=== PATIENT | male | born 1985 | race Caucasian/White ===

== ENCOUNTER 2017-05-24 12:12 | Day surgery (SDC) | payer OTHER ==
[2017-05-24] MEDS ORDERED: Ondansetron HCl/PF 4 MG/2 ML Vial ONE (13:39)
[2017-05-24] MEDS ORDERED: PROPOFOL 200 MG/20 ML VIAL ONE (13:39)
[2017-05-24] MEDS ORDERED: Lidocaine 1% PF 5 ML VIAL ONE (13:39)
[2017-05-24] MEDS ORDERED: Succinylcholine Chloride 20 MG/ML 10 ml SYRINGE FS ONE (13:39)
[2017-05-24] MEDS ORDERED: Fentanyl 250 MCG/5 ML VIAL ONE (14:31)
--- NOTE | 2017-05-24 16:45 | OP ---
DATE OF PROCEDURE: 05/24/2017 GI ENDOSCOPY NOTE SURGEON: Corey Esparza M.D. MANAGER PRESENTATION SURGEON: None. PROCEDURE: Esophagogastroduodenoscopy with removal of esophageal foreign body. INDICATIONS: 1. Esophageal food bolus impaction. 2. Dysphagia. 3. Eosinophilic esophagitis, diagnosed in 2009 and untreated due to poor compliance. MEDICATIONS: See anesthesia record. FINDINGS: After discussion of the risks, benefits, and alternatives of the procedure, informed conse nt was obtained and witnessed. Pre-endoscopic cardiopulmonary examination was satisfactory. Timeout was performed before sedation was achieved. Sedation was achieved with anesthesia assistance in the endoscopy unit. The patient was under general anesthesia with endotracheal intubation for airway pr otection during the procedure. A Pentax adult upper endoscope was placed into the oropharynx and pas sed through the cricopharyngeus under direct visualization. The entire esophageal mucosa has charact eristic findings of eosinophilic esophagitis, including vertical furrows, edema, narrow caliber, and ribbed esophagus. It was actually quite difficult to advance the endoscope beyond 30 cm from the inc isors and even doing this induced a significant mucosal tear at 30 cm. The endoscope was advanced to the distal esophagus where I encountered a food bolus impaction. This consisted of only a single ke rnel of corn. This was impacted at the GE junction at 45 cm and there was surrounding maceration in the area. Using a Dill Net, I was able to extract this kernel of corn from the GE junction. The eso phagus was reintubated and the scope was able to be passed down beyond the GE junction, into the stom ach. Forward and retroflexed views of the entire gastric mucosa were obtained. The gastric mucosa a ppeared normal. The endoscope was advanced through the pylorus and into the first and second portion s of the duodenum, which also appeared normal. The endoscope was then drawn back into the esophagus for reexamination. There was a significant mucosal tear at 45 cm as well as a tear at 30 cm from the incisors. I did not obtain esophageal biopsies on this examination due to his already previously do cumented biopsy-proven eosinophilic esophagitis. I did not perform any additional esophageal dilatio n either, due to the significant mucosal trauma induced at 30 cm and 45 cm just with endoscope passag e. The upper endoscope was then completely withdrawn and the patient allowed to recover. The patien t tolerated the procedure well. There were no immediate post-procedure complications. IMPRESSION: 1. Single impacted kernel of corn at the GE junction, now removed. 2. Diffuse changes of severe eosinophilic esophagitis throughout the esophagus. 3. Mucosal tears induced at 30 cm and 45 cm with endoscope passage. 4. Normal stomach and duodenum. RECOMMENDATIONS: 1. I have sent in a prescription for him to start Dexilant 60 mg by mouth daily. 2. Clear liquid diet today, advance to mechanical soft diet tomorrow. 3. Chew food thoroughly. 4. We will have him follow up in the GI clinic with Dr. Nazario or one of our physician assistants in the next couple of weeks.
== END 2017-05-24 17:30 | disposition home or self-care (01) ==
LOC: SDC 12:12
PROVIDERS: ATTEND Internal Medicine
PROC: 0DC48ZZ Extirpation of Matter from Esophagogastric Junction, Via Natural or Artificial Opening Endoscopic (ICD-10-PCS; principal; 2017-05-24)
DX: T18.128A Food in esophagus causing other injury, initial encounter (principal); K20.0 Eosinophilic esophagitis; K22.8 Other specified diseases of esophagus; K21.9 Gastro-esophageal reflux disease without esophagitis; Z98.890 Other specified postprocedural states
CPT/HCPCS: J2001; J2405; J2704; J3010